=== PATIENT | male | born 1980 | race Caucasian/White ===

== ENCOUNTER 2017-10-19 17:19 | Emergency (ER) | payer SELFPAY ==
[~2017-10-19] VITALS: Ht 170.2 cm; Wt 100.0 kg
[2017-10-19 17:58] LABS: BASOPHILS % 1.3 % (0.0-2.0); EOSINOPHILS % 3.6 % (0.0-5.0); HEMATOCRIT. 43.4 % (42.0-52.0); HEMOGLOBIN. 15.4 g/dL (14.0-18.0); LYMPHOCYTES % 46.1 % (20.0-50.0); MEAN CORPUSCULAR HEMOGLOBIN 31.8 pg (28.0-32.0); MEAN CORPUSCULAR VOLUME 89.7 fL (80.0-94.0); MEAN PLATELET VOLUME 8.5 fl (7.4-10.4); PLATELET 277 x1000/uL (130-400); RED BLOOD CELL COUNT 4.84 mill/uL (4.7-6.1); RED CELL DISTRIBUTION WIDTH 13.8 % (11.6-14.6)
[2017-10-19 18:05] LABS: CHLORIDE 107 mEq/L (98-107)
[2017-10-19 18:06] LABS: PROTHROMBIN TIME 10.4 sec (9.4-11.6)
[2017-10-19] MEDS ORDERED: IBUPROFEN 600MG TABLET PO ONE (18:30)
[2017-10-19 20:32] LABS: CLARITY URINE CLEAR (CLEAR); COLOR URINE YELLOW (YELLOW); KETONES URINE NEGATIVE (NEGATIVE); LEUKOCYTE ESTERASE URINE NEGATIVE (NEGATIVE); NITRITE URINE NEGATIVE (NEGATIVE); OCCULT BLOOD URINE NEGATIVE (NEGATIVE); PROTEIN URINE NEGATIVE (NEGATIVE); SPECIFIC GRAVITY URINE 1.044 (1.005-1.030)
[2017-10-19 21:05] VITALS: BP 102/56
== END 2017-10-19 21:15 | disposition home or self-care (01) ==
LOC: ER 17:19
DX: R07.89 Other chest pain (principal)
CPT/HCPCS: 36415; 71045; 80053; 81003; 83690; 84484; 85025; 85610; 93005; 99285